=== PATIENT | male | born 1960 | race Caucasian/White ===

== ENCOUNTER → 2021-05-04 07:38 | Outpatient (CLI) | payer BC, SELFPAY ==
--- NOTE | 2021-05-22 10:15 | WPDSLEEPSTUD ---
Sleep Study Date of Study: 05/04/21 <Kavya Khan, DO - Last Filed: 05/22/21 10:57> Ordering Provider: Jose Castrejon MD <Kavya Khan DO - Last Filed: 05/22/21 10:57> Interpreting Physician: Kavya Khan DO <Kavya Khan, DO - Last Filed: 05/22/21 10:57> Sleep Study Type: Polysomnogram <Kavya Khan DO - Last Filed: 05/22/21 10:57> Height: 1.8 m <Kavya Khan DO - Last Filed: 05/22/21 10:57> Weight: 92.079 kg <Kavya Khan DO - Last Filed: 05/22/21 10:57> Body Mass Index: 28.3 <Kavya Khan DO - Last Filed: 05/22/21 10:57> Neck Circumference (inches): 17 <Kavya Khan DO - Last Filed: 05/22/21 10:57> [place]: 9 <Kavya Khan DO - Last Filed: 05/22/21 10:57> Reason for Sleep Study The patient has excessive daytime sleepiness, sleepiness interfering with work and difficulty concentrating. <Kavya Khan DO - Last Filed: 05/22/21 10:57> Sleep History The patient is a 62-year-old male with type 2 diabetes that had a sleep study ordered due to excessive daytime sleepiness, difficulty concentrating and sleepiness interfering with work. The symptoms do not occur every day but have been going on for longer than 2 years. The patient denies waking up from sleep short of breath. He rarely awakens with heartburn, belching or cough. he often snores loud enough to where. He denies having trouble sleeping when he has a cold. He denies suddenly waking up gasping for breath throughout the night. He denies any heart palpitations throughout the night. He often falls asleep during. He denies falling asleep while driving. He does have trouble at work because of sleepiness. He denies sleep paralysis and cataplexy. We rarely experiences vivid dreamlike scenes upon awakening or asleep. He denies having nightmares. He often feels sad, depressed and anxious. He denies noticing parts his body jerk. He denies kicking throughout the night and experiencing crawling /aching feelings in his legs. He denies leg pain throughout night. He denies grinding his teeth and waking up with morning jaw pain. He denies being bothered by pain during the day or being awakened by pain throughout the night. He rarely wakes up feeling stiff in the morning with sore and achy muscles. The patient goes to 10:00 p.m. on weekdays and weekends he usually takes him 20 minutes to asleep usually gets 5-6 hours of sleep per night wakes up once throughout the night to your urinate. he falls back asleep within a couple minutes. Usually wakes up at 4:00 a.m. on both weekdays and weekends. He does not stay in bed after waking morning. He does not live with anyone. He does have a rotating work schedule. He denies consuming any caffeinated beverages within 2 hours before going to bed. He does not engage in physical exercise before bedtime. He will read and watch television prior to bedtime. He will take naps during the afternoon which are refreshing. He denies tobacco, alcohol and recreational drug use. He does consume 1 caffeinated beverage per day. <Kavya Khan DO - Last Filed: 05/22/21 10:57> [facility] Past Medical History Medical History: Medical History Apnea BMI 29.0-29.9,adult Screening for prostate cancer <Kavya Khan DO - Last Filed: 05/22/21 10:57> Family History Family History: Family History Mother Hypertension Family history of diabetes mellitus in first degree relative Father Family history of liver disease Other Family history of malignant neoplasm <Kavya Khan DO - Last Filed: 05/22/21 10:57> Social History Social History: Social History Smoking status: Never smoker Alcohol intake: nev
[2021-05-22 10:17] VITALS: BMI 28.3
== END ==
PROVIDERS: PCP Family Medicine; Visit Provider Family Medicine
DX: G47.33 Obstructive sleep apnea (adult) (pediatric) (principal)
CPT/HCPCS: 95810

== ENCOUNTER → 2021-09-29 08:09 | Outpatient (CLI) | payer BC, SELFPAY ==
--- NOTE | ~2021-09-29 | US_ITS ---
US abdomen complete EXAMINATION: US Abdomen Complete INDICATION: Abnormal labs. PROCEDURE: Realtime High Resolution abdomen ultrasound. COMPARISON: No prior studies for comparison FINDINGS: There is a 4 mm gallbladder polyp. No gallstones, gallbladder wall thickening or pericholec ystic fluid. Common bile duct measures 3 mm. Liver echotexture is increased, consistent with fatty infiltration.. Pancreas within normal limits. Pancreatic tail is obscured by bowel gas. Spleen is unremarkeable. Renal echotexture is within norm al limits bilaterally without hydronephrosis, contour deforming mass or renal stone. Right kidney claudio sures 11 cm. Left kidney measures 11.7 cm. Visualized aspects of the aorta and IVC are within normal limits. Portal vein is patent. No sonograph ic Westbrook's sign indicated by the technologist. IMPRESSION: 1: Gallbladder polyp measuring 4 mm. 2: Hepatic steatosis. Reviewed, dictated and finalized at location A. [facility]
== END ==
PROVIDERS: PCP Family Medicine; Visit Provider Nurse Practitioner Family
DX: R74.8 Abnormal levels of other serum enzymes (principal); K82.4 Cholesterolosis of gallbladder; K76.0 Fatty (change of) liver, not elsewhere classified
CPT/HCPCS: 76700

== ENCOUNTER 2021-10-07 19:19 | Emergency (ER) | payer OTHER, BC, SELFPAY ==
--- NOTE | ~2021-10-07 | XR_ITS ---
EXAMINATION: XR ankle LT min 3V DATE: 10/07/2021 19:31 INDICATION: Left ankle pain and swelling TECHNIQUE: Anteroposterior, lateral, mortise, and additional oblique view of the ankle were obtained. COMPARISON: 08/21/2004 FINDINGS: There is lateral soft tissue swelling of ankle. Bone alignment is normal. There is no fract ure. Calcified atherosclerosis is noted. IMPRESSION: 1. Lateral soft tissue swelling of ankle without acute osseous abnormality. Reviewed, dictated and finalized at location F. S [employer]
--- NOTE | 2021-10-07 19:30 | ED.LOWEXIN ---
HPI - Extremity Injury (Lower) General Chief Complaint: Extremity Injury, Lower Stated Complaint: injured l ankle Time Seen by Provider: 10/07/21 19:34 Source: patient, RN notes reviewed and old records reviewed Mode of arrival: ambulatory Limitations: no limitations History of Present Illness HPI Narrative: 61-year-old [facility] pain. Reports fell on bleachers and twisted and fell on his ankle earlier today. Has been able to walk but hurts with full weight on foot. Increased pain with certain positions. Left ankle is swollen, no redness, no bruising. Has taken ibuprofen 200 mg x 1. Has not applied ice. Has not elevated leg. MD complaint: ankle injury (Left) Related Data Allergies Allergy/AdvReac Type Severity Reaction Status Date / Time Iixmvyl-VGJ-WqP Reductase Allergy Unknown Unknown Verified 02/19/21 14:37 Inhibitor [Jqcryju-Iax-Qbi Reductase Inhibitor] Review of Systems Review of Systems: CONSTITUTIONAL: Denies fever, chills, or sweats. EYES: Denies visual changes, redness, or discharge. ENT: Denies rhinorrhea, congestion, sore throat, or otalgia. CARDIOVASCULAR: Denies chest pain, palpitations, or edema. RESPIRATORY: Denies cough or dyspnea. GASTROINTESTINAL: Denies abdominal pain, nausea, vomiting, or diarrhea. GENITOURINARY: Denies dysuria or hematuria. SKIN: Denies rash or itching. MUSCULOSKELETAL: Denies back pain. Reports left ankle pain and swelling. NEUROLOGIC: Denies headache, numbness, or weakness. PSYCHIATRIC: Denies anxiety or depression. All other systems reviewed are negative, except as documented in HPI. [facility] Past Medical History Medical History Apnea BMI 29.0-29.9,adult Screening for prostate cancer Family History Family History Mother Hypertension Family history of diabetes mellitus in first degree relative Father Family history of liver disease Other Family history of malignant neoplasm Social History Social History Smoking status: Never smoker Alcohol intake: never Comments At the time of my signature, I reviewed and agree with the nursing past medical, surgical, social, and family history. There is no relevant family history pertinent to the patient complaint. Exam Narrative: GENERAL: This is a well-nourished, well-developed male, in no apparent distress. Pleasant and cooperative. HEAD: normocephalic, atraumatic. EYES: Sclera clear/white. Vision is grossly intact. EARS: External ears normal, auditory canals clear and without drainage. Hearing grossly intact. NOSE: External nose normal with no obvious nasal discharge, nares without redness, no rhinorrhea. THROAT: Mucous membranes moist, posterior pharynx clear. NECK: Neck supple, non-tender without lymphadenopathy, masses or thyromegaly. CARDIOVASCULAR: Regular rate and rhythm without murmurs, gallops, or rubs. RESPIRATORY: Clear to auscultation anterior and posterior.. Breath sounds equal bilaterally. No wheezes, rales, or rhonchi. GASTROINTESTINAL: Abdomen soft, non-tender, nondistended. Bowel sounds are active. No hepato-splenomegaly, or palpable masses. No guarding. SKIN: warm, Dry, intact with no suspicious lesions or rash, good texture and turgor. NEURO: awake, alert, and oriented to person, place and time. There were no obvious focal neurologic abnormalities. EXTREMITIES: No bilateral upper extremity or right joint tenderness, effusion, or edema noted. No calf tenderness. EXTREMITIES: Right foot and ankle has normal strength and sensation. No right ankle edema or ecchymosis. Left ankle limited range of motion due to pain. Left lateral malleolus swelling. 5/5 strength with bilateral ankle flexion and extension. Normal sensation with sensitivity to light touch and pain. Left lateral malleol
[2021-10-07 19:32] VITALS: BP 118/74; PULSE 112; RESP 16; TEMP 36.2; O2SAT 98
== END 2021-10-07 19:50 | disposition home or self-care (01) ==
PROVIDERS: Emergency Provider Nurse Practitioner Family; PCP Family Medicine
DX: S90.02XA Contusion of left ankle, initial encounter (principal); W19.XXXA Unspecified fall, initial encounter
CPT/HCPCS: 73610; 99213; G0463

== ENCOUNTER → 2022-01-15 11:00 | Outpatient (CLI) | payer BC, SELFPAY ==
--- NOTE | ~2022-01-15 | XR_ITS ---
XR ankle LT min 3V DATE: 01/15/2022 11:19 INDICATION: Left ankle injury, pain TECHNIQUE: 4 views COMPARISON: October 07, 2021 left ankle FINDINGS: Posterior tibial artery calcification. No fracture or dislocation of the ankle or disruption of the ankle mortise is detected. No periosteal reaction or bone destruction. IMPRESSION: No fracture or dislocation Reviewed, dictated and finalized at location A. IMPRESSION: No fracture or dislocation
== END ==
PROVIDERS: PCP Family Medicine; Visit Provider Physician Assistant Medical
DX: S99.912A Unspecified injury of left ankle, initial encounter (principal)
CPT/HCPCS: 73610

== ENCOUNTER → 2022-02-22 17:09 | Outpatient (CLI) | payer BC, SELFPAY ==
--- NOTE | ~2022-02-22 | MR_ITS ---
EXAMINATION: MR ankle LT wo con DATE: 02/22/2022 17:44 INDICATION: Left ankle pain TECHNIQUE: Magnetic resonance imaging (MRI) of the left ankle was performed without intravenous contr ast. Sequences included sagittal, coronal, and axial proton-density weighted fast spin echo without a nd with fat saturation. COMPARISON: None. FINDINGS: Medial ankle ligaments: There is thickening and loss of the normally clearly delineated striated pattern of the deep deltoid ligament without surrounding edema consistent with scarring related to chronic sprain. The superficia l deltoid ligament and spring ligament complex are normal. Lateral ankle ligaments: The anterior and posterior inferior tibiofibular ligaments are normal. Thickening and mild increased signal of the anterior talofibular and calcaneofibular ligaments consistent with scarring related to chronic sprains. The posterior talofibular ligament is normal. Tendons: Achilles tendon is normal. Small amount of fluid along the peroneal tendon sheath consistent with mil d tenosynovitis. Mild tendinopathy and longitudinal split tear of the peroneus longus tendon centered at the level of the distal tip at the lateral malleolus. Peroneus brevis tendon is normal. The tibia lis anterior and extensor hallucis longus and extensor digitorum longus tendons are normal. The tibia lis posterior, flexor digitorum longus and flexor hallucis longus tendons are normal. Plantar fascia: Plantar aponeurosis is normal. Bones/other: Small low signal intensity bone island at the talar dome. Marrow signal is otherwise normal with no r eactive edema, fracture or pathologic marrow replacing process. Nonspecific edema at Kager's fat pad. Fluid: Small tibiotalar and subtalar joint effusions. IMPRESSION: 1. Scarring consistent with chronic sprains of the deltoid ligament at the medial ankle and at the an terior talofibular and calcaneofibular ligaments at the lateral ankle. 2. Mild peroneal tenosynovitis with mild tendinopathy and longitudinal split tearing of the peroneus longus tendon. 3. Small tibiotalar and subtalar joint effusions and nonspecific mild edema at Kager's fat pad. Reviewed, dictated and finalized at location A. IMPRESSION: 1. Scarring consistent with chronic sprains of the deltoid ligament at the medi al ankle and at the anterior talofibular and calcaneofibular ligaments at the l ateral ankle. 2. Mild peroneal tenosynovitis with mild tendinopathy and longitudinal split te aring of the peroneus longus tendon. 3. Small tibiotalar and subtalar joint effusions and nonspecific mild edema at Kager's fat pad.
== END ==
PROVIDERS: PCP Family Medicine; Visit Provider Nurse Practitioner Family
DX: S99.912A Unspecified injury of left ankle, initial encounter (principal); M25.572 Pain in left ankle and joints of left foot; M65.872 Other synovitis and tenosynovitis, left ankle and foot; S96.812A Strain of other specified muscles and tendons at ankle and foot level, left foot, initial encounter; M25.472 Effusion, left ankle; M79.89 Other specified soft tissue disorders
CPT/HCPCS: 73721

== ENCOUNTER 2023-12-15 08:39 | Outpatient (CLI) | payer BC, SELFPAY ==
--- NOTE | ~2023-12-15 | XR_ITS ---
EXAMINATION: XR abdomen/kub 1V DATE: 12/15/2023 09:00 INDICATION: Renal stones TECHNIQUE: A supine view of the abdomen on 2 radiographs was obtained. COMPARISON: 04/16/2019 FINDINGS: 5 mm stone projecting over the lower pole of the left kidney. No other definitive urolithiasis apprec iated. No dilated loops of gas-filled bowel to suggest obstruction. Moderate lower lumbar spondylosis . IMPRESSION: 1. 5 mm stone at the lower pole the left kidney. Reviewed, dictated and finalized at location A.
== END 2023-12-15 08:40 ==
PROVIDERS: PCP Nurse Practitioner Family; Visit Provider Nurse Practitioner Family
DX: N20.0 Calculus of kidney (principal); Z87.442 Personal history of urinary calculi
CPT/HCPCS: 74018

== ENCOUNTER 2023-12-15 14:12 | Outpatient (CLI) | payer BC, SELFPAY ==
--- NOTE | ~2023-12-15 | CT_ITS ---
EXAMINATION: CT abdomen pelvis w con DATE: 12/15/2023 14:38 INDICATION: Right lower quadrant abdominal pain TECHNIQUE: Computed tomography (CT) of the abdomen and pelvis was performed with 100 mL Omnipaque-350 intravenous contrast. Automated exposure control and iterative reconstruction technique were employe d. The dose-length product was 979.45 mGy-cm. COMPARISON: 04/11/2019 FINDINGS: Lung bases are clear. Heart size is normal. Atherosclerotic coronary artery calcific location. No per icardial or pleural effusion. Small sliding-type hiatal hernia. Mild diffuse hepatic steatosis. Gallb ladder, spleen, pancreas and bilateral adrenal glands are normal. For millimeter nonobstructing stone at a lower pole calyx of the left kidney. A millimeter nonenhancing left renal cyst. 4 x [address] one at the distal right ureter approximately 4-5 cm above level of the ureterovesicular junction with mild right hydronephrosis. There are a few tiny densities and Marlene fluid collection at a small cortical defect at the posterior aspect of the lower pole of the right kidney which suggests sequela prior partial nephrectomy. Correlate with surgical history. No evident enhancing soft tissue density at the site of the suspected surgical defect. Multiple posterior bladder diverticula which could be r elated to chronic outlet obstruction from the enlarged prostate which measures 4.1 x 4.1 cm. Bowels i ncluding the appendix are normal. Moderate-sized bilateral fat-containing inguinal hernias. No free i ntraperitoneal gas or fluid. No pathologically enlarged abdominal or pelvic lymphadenopathy. Severe l umbosacral and moderate lumbar spondylosis. Mild spondylosis in the lower thoracic spine. IMPRESSION: 1. Bilateral nephrolithiasis with at least partially obstructing 3 to 4 mm stone in the distal right ureter with mild right hydronephrosis. 2. Change of likely partial nephrectomy at the lower pole of the left kidney. Correlate with surgical history. 3. Small sliding-type hiatal hernia. 4. Several posterior bladder diverticula which suggests sequela of chronic outlet obstruction from th e enlarged prostate. 5. Small to moderate-sized bilateral fat-containing inguinal hernias. Reviewed, dictated and finalized at location A. IMPRESSION: 1. Bilateral nephrolithiasis with at least partially obstructing 3 to 4 mm ston e in the distal right ureter with mild right hydronephrosis. 2. Change of likely partial nephrectomy at the lower pole of the left kidney. C orrelate with surgical history. 3. Small sliding-type hiatal hernia. 4. Several posterior bladder diverticula which suggests sequela of chronic outl et obstruction from the enlarged prostate. 5. Small to moderate-sized bilateral fat-containing inguinal hernias.
[2023-12-15 14:31] LABS: Estimated Glomerular Filt Rate > 60
== END 2023-12-15 14:13 ==
PROVIDERS: PCP Physician Assistant Medical; Visit Provider Physician Assistant Medical
DX: N20.0 Calculus of kidney (principal); R31.9 Hematuria, unspecified; I10 Essential (primary) hypertension; E11.9 Type 2 diabetes mellitus without complications; Z87.442 Personal history of urinary calculi
CPT/HCPCS: 74177; Q9967

== ENCOUNTER 2024-01-13 12:18 | Outpatient (CLI) | payer BC, SELFPAY ==
--- NOTE | 2024-01-13 12:27 | ECG_ITS ---
[facility] [address] Test Date: 2024-01-13 Pat Name: Edward Be Department: Room: Gender: Oss Architect: : [id number] Requested By: Kalia Clark Order Number: [id number] Markus MD: Peter Diehl M.D. Measurements Intervals [place] Rate: 66 P: 1 GA: 143 QRS: 19 QRSD: 94 T: 31 QT: 400 QTc: 419 Interpretive Statements SINUS RHYTHM No previous ECG available for comparison Electronically Signed On 01-13-2024 14:28:17 CDT by Peter Diehl M.D.
== END 2024-01-13 12:19 | disposition home or self-care (01) ==
LOC: ANHSURGERY 12:21
PROVIDERS: PCP Family Medicine; Visit Provider Surgery
DX: Z01.818 Encounter for other preprocedural examination (principal); E78.5 Hyperlipidemia, unspecified; I10 Essential (primary) hypertension; K40.20 Bilateral inguinal hernia, without obstruction or gangrene, not specified as recurrent
CPT/HCPCS: 36415; 86850; 86900; 86901; 93005

== ENCOUNTER 2024-01-22 02:41 | Day surgery (SDC) | payer BC, SELFPAY ==
[2024-01-12 12:47] VITALS: BMI 29.5
--- NOTE | 2024-01-12 12:48 | PC.NURSE ---
Report to the Outpatient Waiting Room, entrance under the green pavilion located off [facility], at time _1000_ on date _[id number]_. Planned Procedure Time: _1200_. Time changes happen often and if your time is changed the preop area will call you the afternoon before. - You and your visitor will be asked to self-screen and do not enter if you have any COVID symptoms. - A mask is optional within the hospital at this time. Patients may have clear liquids (water, carbonated beverages, clear teas, apple juice) until 3 hours prior to surgery with a maximum of 20 ounces. - No food from midnight until time of surgery Take the following medications with a SIP of water the morning of surgery: ___Metoprolol and Sertraline. DO NOT STOP ANY OF YOUR OTHER PRESCRIPTION MEDICATIONS PRIOR TO SURGERY ?EXCEPT THE FOLLOWING Medications to discontinue per physician ___None Date to take last dose Please no make-up, nail honduran, hairspray, perfume, deodorant, or body powder the day of surgery. No jewelry (including any body piercings) or valuables the day of surgery, leave them at home. Please take a shower or bath the night before, or the morning of, surgery with an antibacterial soap. Wear comfortable, loose fitting clothing. - Jewelry must be removed prior to entering the operating room. Rings and piercings that are not removed may be cut off. - The hospital will not accept responsibility for valuables. - Please leave all valuables, including medications, at home the day of surgery. If you are going home after surgery, a licensed milk pickup truck driver must drive you home. - NO public transportation without another adult if you receive anesthesia. - We recommend that an adult stay with you for 24 hours following discharge. - We also recommend that you do not drive, make important decision, drink alcoholic beverages, or take any drugs that were not prescribed by your health care provider for at least 24 hours after your discharge time. Follow any additional instructions given to you from your surgeon. If you or anyone in your household have experienced Covid symptoms in the past week, please notify your surgeon or the nurse liaison at the phone number below for possible testing. Telephone instructions given to _Edward__and asked if any additional questions and then verbalized understanding. Patient advised to call surgeon office or pre surgery nurse liaison [phone] if any additional questions.
[2024-01-22] VITALS (11 sets, daily range): BP systolic 123–149; BP diastolic 64–83; PULSE 66–84; RESP 12–16; TEMP 36.1–36.6; O2SAT 93–100
[2024-01-22 10:28] LABS: Glucose Point of Care 117 mg/dl (65-105)
[2024-01-22] MEDS: ACETAMINOPHEN 500 MG TABLET 1000 MG PO (10:30)
[2024-01-22] MEDS: KETOROLAC 15 MG/ML VIAL (*BKC) IV PUSH (10:30)
[2024-01-22] MEDS: LACTATED RINGERS 1,000 ML 30 ML IV CONT ×4 (10:30→16:31)
--- NOTE | 2024-01-22 11:31 | WPDANESEPPF ---
Anes - Initial Pre Proc Eval Procedure: Operation Date: 01/22/24 12:00 Proposed Procedures p Robotic Recurrent Right Inguinal Hernia, Left Inguinal Hernia Repair with Mesh - Liza Funk MD Date/Time: 01/22/24 11:31 Surgeon: Liza Funk MD Pre Op Diagnosis: Recurrent Right Ing Henia, Left Ing Hernia Patient Data Age: 63 Gender: M Height: 1.8 m Weight: 91.9 kg Last Vital Signs Temp 97.8 F 01/22/24 11:00 Pulse 70 01/22/24 11:00 Resp 16 01/22/24 11:00 BP 123/68 01/22/24 11:00 Pulse Ox 98 01/22/24 11:00 O2 Del Method Room Air 01/22/24 11:00 Allergies Allergy/AdvReac Type Severity Reaction Status Date / Time No Known Allergies Allergy Verified 01/22/24 11:16 Home Medications Medication Instructions Recorded Confirmed Type metformin 500 mg tablet,extended See Rx Instructions .Route 08/22/23 01/12/24 Rx release 24 hr .COMPLEX #360 tabs sertraline 50 mg tablet 50 mg PO DAILY #90 tabs 10/31/23 01/12/24 Rx ezetimibe 10 mg tablet 10 mg PO DAILY #90 tabs 11/19/23 01/12/24 Rx tamsulosin 0.4 mg capsule See Rx Instructions .Route 12/16/23 01/12/24 Rx .COMPLEX #90 caps lisinopril 20 mg tablet See Rx Instructions .Route 01/03/24 01/12/24 Rx .COMPLEX #90 tabs metoprolol tartrate 25 mg tablet 25 mg PO BID #180 tabs 01/03/24 01/12/24 Rx omeprazole 40 mg capsule,delayed See Rx Instructions .Route 01/03/24 01/12/24 Rx release .COMPLEX #90 caps Laboratory Tests 01/22/24 10:25 POC Capillary Glucose 117 H mg/dl (65-105) Patient hx anesthesia problems: none Family hx anesthesia problems: none Results Review: All pre-operative results and documents have been reviewed as part of the pre-operative evaluation. [facility] Past Medical History Medical History Apnea BMI 28.0-28.9,adult Screening for prostate cancer Surgical History Surgical History History of kidney surgery History of shoulder surgery Hx of eye surgery Hx of hernia repair Family History Family History Mother Hypertension Family history of diabetes mellitus in first degree relative Diabetes mellitus Father Family history of liver disease Sibling No problems noted. Other Family history of malignant neoplasm Social History Social History Smoking status: Never smoker Second hand tobacco smoke exposure: Yes Alcohol intake: never Substance use: never Substance use type: does not use Lack of Transportation: No Lack of Food: Never True Current Housing: I Have Housing Concerned About Future Housing: No Difficulty Paying Gas/Electric Bills: No Difficulty Paying for Meds: No Currently Unemployed: No Education: High School Diploma/GED Difficulty w/ Childcare or Family Care: No Living arrangements: with family Occupation/Education: occupation Additional occupation/education comments: [employer] Gender identity (if verbalized by the patient): Male Spiritual care concerns: No Anes - Eval Final PreProcedure Day of Procedure 01/22/24 11:31 Patient weight: obese Heart: regular rate and rhythm Lungs: clear to auscultation Airway: Mallampati scale class III Neurological: alert and oriented Last oral intake: >/= 8 hours ASA classification: III Emergent: no Anesthetic plan: proceed Anesthesia type and monitoring: general ETT (have glide scope in the room) and standard monitoring Results Review: All pre-operative results and documents have been reviewed as part of the pre-operative evaluation. Informed Consent: The patient's anesthetic plan and its attendant risks and benefits were discussed with the patient/family/POA. Questions were solicited and answers provided to the satisfaction of the patient/
--- NOTE | 2024-01-22 12:02 | WPDHPUPDATE1 ---
History and Physical Update Update Date/Time: 01/22/24 12:02 History and Physical has been reviewed, including an updated exam of the patient. There are NO changes in the patient's condition. Risks, benefits, and alternatives have been discussed and questions answered. Patient agrees to proceed with procedure.
[2024-01-22] MEDS: ceFAZolin 2 GM/D5W 50 ML 2 GM/50 ML BAG IVPB (12:06)
[2024-01-22] MEDS: BUPIVACAINE/EPINEPHRINE 0.5% 50 ML VIAL 30 ML INFILTRATE (12:46)
--- NOTE | 2024-01-22 13:54 | W.PM.PROC2 ---
Procedure Note - Detailed Date of Procedure 01/22/24 Pre-op Diagnosis Recurrent Right Inguinal Hernia, Left Inguinal Hernia Post-op Diagnosis Other (right pantaloon inguinal hernia, left indirect hernia) Procedure Performed Robotic assisted repair of recurrent right inguinal hernia, left inguinal hernia Surgeon Liza Funk MD Anesthesia General and Local Indications 63-year-old male presenting to the office with bilateral inguinal hernia. The patient had previous laparoscopic right inguinal hernia repair many years ago. Findings Recurrent right inguinal hernia indirect defect, previous mesh pulled away and superior direction, left indirect inguinal hernia Description of Procedure Patient was brought into the operating room and placed in the supine position. After adequate induction of general anesthesia, the patient was prepped and draped in normal sterile fashion. A time-out was then done to verify the patient's identity, as well as the procedure being performed. I began by making a 8 mm incision in the supraumbilical region, a Veress needle was then placed into the peritoneal cavity. CO2 gas was then insufflated and after adequate pneumoperitoneum was achieved, the Veress needle was removed. I then placed an 8 mm trocar through this incision. I then placed the endoscope through this trocar site and under direct visualization placed 2 further 8 mm ports in the right and left mid abdomen. The [employer] robot was then docked to the 3 trocar sites. I then scrubbed out and went to the robotic console. Upon examining the pelvis, it was noted that the patient had a moderate sized right inguinal hernia. The left side was examined and a small hernia defect was noted. I began by making a preperitoneal flap approximately 6 cm superior to the right sided defect. This flap was carried medially past the umbilical ligaments and laterally to the transversalis. Of note, this dissection was quite difficult as the patient had previous laparoscopic repair. The previous mesh was also encountered. I was able to get a plane between the mesh and the anterior abdominal wall as the mesh was very adherent to the underlying peritoneum. I then began dissection of my medial compartment taking this down to the pubic tubercle. No direct defect was noted. I then began the lateral dissection taking this down to the transversalis fascia. Once these compartments were achieved, I began dissection around the cord structures. A moderate sized indirect hernia was noted at this point. The previously placed mesh had pulled away superiorly allowing an inferior recurrence. Using careful dissection, was able to reduce indirect hernia sac off the cord structures. Once this was adequately done, I went ahead and placed a large piece of 3D Max mesh into the abdominal cavity. The mesh was carefully positioned, centering the center of the mesh over the indirect defect. Once this was done, was very satisfied with our repair. Using 3-0 Vicryl sutures, I tacked the mesh medially to Leonel's ligament. Two lateral sutures were placed from the mesh to the transversalis fascia. I then began on the left side by making a preperitoneal flap approximately 6 cm superior to the left sided defect. This flap was carried medially past the umbilical ligaments and laterally to the transversalis. It then began dissection of my medial compartment taking this down to the pubic tubercle. I then began the lateral dissection taking this down to the transversalis fascia. Once these compartments were achieved, I began dissection around the cord structures. A small indirect hernia was noted at this point. Using careful dissection, was able to reduce indirect hernia sac off the cord structures. Once this was adequately done, I went ahead and placed a large piece of 3D Max mesh into the abdominal cavity. The mesh was carefully positioned, centering the center of the mesh over the indirect defect. Once this was d
[2024-01-22 14:14] LABS: Glucose Point of Care 149 mg/dl (65-105)
--- NOTE | 2024-01-22 14:23 | SUR.PHASEI ---
1422: Simple mask removed.
[2024-01-22] MEDS: fentaNYL CITRATE INJ (*CRX) 100 MCG/2 ML VIAL 25 MCG IV PUSH ×4 (14:34→15:05)
[2024-01-22] MEDS: oxyCODONE HCL (*CRX) 5 MG TAB IR PO (15:19)
== END 2024-01-22 17:03 | disposition home or self-care (01) ==
PROVIDERS: PCP Family Medicine; Visit Provider Surgery
PROC: 8E0Y4CZ Robotic Assisted Procedure of Lower Extremity, Percutaneous Endoscopic Approach (ICD-10-PCS; CPT 49650; principal; 2024-01-22 12:00)
DX: K40.91 Unilateral inguinal hernia, without obstruction or gangrene, recurrent (principal); K40.90 Unilateral inguinal hernia, without obstruction or gangrene, not specified as recurrent; Z79.84 Long term (current) use of oral hypoglycemic drugs; E66.9 Obesity, unspecified; Z68.28 Body mass index [BMI] 28.0-28.9, adult
CPT/HCPCS: 49651; 49650; S2900; 82948; A9270; C1781; J0330; J0690; J1100; J1885; J2250; J2405; J2704; J3010; J7030; J7120

== ENCOUNTER 2024-02-17 10:24 | Outpatient (CLI) | payer BC, SELFPAY ==
[2024-02-17 10:54] LABS: Anion Gap 9 mmol/L (4-12); Blood Urea Nitrogen 21 mg/dL (9-20); Calcium 8.7 mg/dL (8.4-10.2); Carbon Dioxide 26 mmol/L (22-30); Chloride 103 mmol/L (98-107); Estimated Glomerular Filt Rate > 60; Glucose 149 mg/dL (65-110); Potassium 4.6 mmol/L (3.4-5.0); Sodium 138 mmol/L (137-145)
== END 2024-02-17 10:25 | disposition home or self-care (01) ==
LOC: ANHSURGERY 10:25
PROVIDERS: Anesthesiology; PCP Family Medicine; Visit Provider Urology
DX: Z01.818 Encounter for other preprocedural examination (principal); E11.9 Type 2 diabetes mellitus without complications
CPT/HCPCS: 36415; 80048

== ENCOUNTER 2024-02-19 01:17 | Day surgery (SDC) | payer BC, SELFPAY ==
[2024-02-16 15:29] VITALS: BMI 29.2
--- NOTE | 2024-02-16 15:40 | SUR.PREOP ---
Addendum entered by Brigida Nolen RN 02/17/24 07:05: Pt notified to also take metoprolol morning of surgery with small sip of water. Original Note: Report to the Outpatient Waiting Room, entrance under the green pavilion located off [facility], at time 0800 on date 02/19/24. Planned Procedure Time: 1000. Time changes happen often and if your time is changed the preop area will call you the afternoon before. - You and your visitor will be asked to self-screen and do not enter if you have any COVID symptoms. - A mask is optional within the hospital at this time. Patients may have clear liquids (water, carbonated beverages, clear teas, apple juice) until 3 hours prior to surgery with a maximum of 20 ounces. - No food from midnight until time of surgery Take the following medications with a SIP of water the morning of surgery: SERTRALINE IF NEEDED DO NOT STOP ANY OF YOUR OTHER PRESCRIPTION MEDICATIONS PRIOR TO SURGERY ?EXCEPT THE FOLLOWING Medications to discontinue per physician STOP ALL SUPPLIMENTS AND VITAMINS 3 DAYS PRIOR TO PROCEDURE. Date to take last dose 02/16/24 Please no make-up, nail french, hairspray, perfume, deodorant, or body powder the day of surgery. No jewelry (including any body piercings) or valuables the day of surgery, leave them at home. Please take a shower or bath the night before, or the morning of, surgery with an antibacterial soap. Wear comfortable, loose fitting clothing. Children are encouraged to wear pajamas. - Jewelry must be removed prior to entering the operating room. Rings and piercings that are not removed may be cut off. - The hospital will not accept responsibility for valuables. - Please leave all valuables, including medications, at home the day of surgery. If you are going home after surgery, a licensed tanker driver must drive you home. - NO public transportation without another adult if you receive anesthesia. - We recommend that an adult stay with you for 24 hours following discharge. - We also recommend that you do not drive, make important decision, drink alcoholic beverages, or take any drugs that were not prescribed by your health care provider for at least 24 hours after your discharge time. Follow any additional instructions given to you from your surgeon. If you or anyone in your household have experienced Covid symptoms in the past week, please notify your surgeon or the nurse liaison at the phone number below for possible testing. Telephone instructions given to ROX MENDIOLA and asked if any additional questions and then verbalized understanding. Patient advised to call surgeon office or pre surgery nurse liaison [phone] if any additional questions.
--- NOTE | 2024-02-18 15:25 | WPDANESEPPF ---
Anes - Initial Pre Proc Eval Procedure: Operation Date: 02/19/24 10:30 Proposed Procedures p Cystoscopy, Possible Urethral Dilation, Bilateral Ureteroscopy, Possible Bilateral Stone Extraction - Heron Ferreira MD Date/Time: 02/18/24 15:25 Surgeon: Heron Ferreira MD Pre Op Diagnosis: right ureteral stone, hydronephrosis, BPH Patient Data Age: 63 Gender: M Height: 1.8 m Weight: 95.25 kg Allergies Allergy/AdvReac Type Severity Reaction Status Date / Time No Known Allergies Allergy Verified 02/19/24 09:26 Home Medications Medication Instructions Recorded Confirmed Type metformin 500 mg tablet,extended See Rx Instructions .Route 08/22/23 02/16/24 Rx release 24 hr .COMPLEX #360 tabs tamsulosin 0.4 mg capsule See Rx Instructions .Route 12/16/23 02/16/24 Rx .COMPLEX #90 caps lisinopril 20 mg tablet See Rx Instructions .Route 01/03/24 02/16/24 Rx .COMPLEX #90 tabs metoprolol tartrate 25 mg tablet 25 mg PO BID #180 tabs 01/03/24 02/16/24 Rx omeprazole 40 mg capsule,delayed See Rx Instructions .Route 01/03/24 02/16/24 Rx release .COMPLEX #90 caps sertraline 50 mg tablet 50 mg PO DAILY #90 tabs 01/28/24 02/16/24 Rx ezetimibe 10 mg tablet 10 mg PO DAILY #90 tabs 02/13/24 02/16/24 Rx Patient hx anesthesia problems: none Family hx anesthesia problems: none Results Review: All pre-operative results and documents have been reviewed as part of the pre-operative evaluation. [facility] Past Medical History Medical History (Updated 02/18/24 @ 15:26 by Kalia Jansen DO) Apnea BMI 28.0-28.9,adult Elevated liver enzymes Essential (primary) hypertension Hepatic steatosis DARLING (obstructive sleep apnea) Screening for prostate cancer Type 2 diabetes mellitus without complications Surgical History Surgical History History of kidney surgery History of shoulder surgery Hx of eye surgery Hx of hernia repair S/P inguinal hernia repair 01/22/24 Robotic assisted repair of recurrent right inguinal hernia, left inguinal hernia on Family History Family History Mother Hypertension Family history of diabetes mellitus in first degree relative Diabetes mellitus Father Family history of liver disease Sibling No problems noted. Other Family history of malignant neoplasm Social History Social History Smoking status: Never smoker Second hand tobacco smoke exposure: Yes Alcohol intake: never Substance use: never Substance use type: does not use Lack of Transportation: No Lack of Food: Never True Current Housing: I Have Housing Concerned About Future Housing: No Difficulty Paying Gas/Electric Bills: No Difficulty Paying for Meds: No Currently Unemployed: No Education: High School Diploma/GED Difficulty w/ Childcare or Family Care: No Living arrangements: with family Occupation/Education: occupation Additional occupation/education comments: [id number] Gender identity (if verbalized by the patient): Male Spiritual care concerns: No Anes - Eval Final PreProcedure Day of Procedure 02/18/24 15:25 Patient weight: overweight Heart: regular rate and rhythm Lungs: clear to auscultation Airway: Mallampati scale class II Neurological: alert and oriented Last oral intake: >/= 8 hours ASA classification: III Emergent: no Anesthetic plan: proceed Anesthesia type and monitoring: general LMA and standard monitoring Results Review: All pre-operative results and documents have been reviewed as part of the pre-operative evaluation. Informed Consent: The patient's anesthetic plan and its attendant risks and benefits were discussed with the patient/family/POA. Questions were solicited and answers provided to the satisfaction of the patient/family/POA.
[2024-02-19] VITALS (7 sets, daily range): BP systolic 119–139; BP diastolic 80–85; PULSE 62–75; RESP 8–20; TEMP 36.1–36.8; O2SAT 97–100
--- NOTE | ~2024-02-19 | XR_ITS ---
XR fluoroscopy no charge Indication: Right ureteroscopy TECHNIQUE: Fluoroscopy used during Right ureteroscopy performed by [Heron Ferreira MD] on 06/2024. 7.2 seconds of fluoroscopy with 3 fluoroscopic images captured. FINDINGS: Correlate with procedure note. IMPRESSION: Fluoroscopy used during Right ureteroscopy. Reviewed, dictated and finalized at location B.
--- NOTE | 2024-02-19 06:31 | WPDHPUPDATE1 ---
History and Physical Update Update Date/Time: 02/19/24 06:31 History and Physical has been reviewed, including an updated exam of the patient. There are NO changes in the patient's condition. Risks, benefits, and alternatives have been discussed and questions answered. Patient agrees to proceed with procedure.
[2024-02-19] MEDS: LACTATED RINGERS 1,000 ML 30 ML IV CONT (09:00)
[2024-02-19 09:10] LABS: Glucose Point of Care 156 mg/dl (65-105)
[2024-02-19] MEDS: ceFAZolin 2 GM/D5W 50 ML 2 GM/50 ML BAG IVPB (10:18)
--- NOTE | 2024-02-19 10:53 | P.OP_ITS ---
Procedure Note - Detailed Date of Procedure 02/19/24 Pre-op Diagnosis Right ureteral stone, BPH Post-op Diagnosis Other (1. Spontaneously passed right ureteral stone 2. Mild BPH 3. No urethral strictures) Procedure Performed cystoscopy, urethral dilatation, right ureteroscopy Surgeon Heron Ferreira MD Anesthesia General Description of Procedure bit of an unusual procedure today. Patient was prepped and draped in routine sterile fashion after the uneventful induction of a general LMA anesthetic. Cy stoscopy was undertaken with a 19 F rigid cystoscope. I did not see obvious urethral stricture disease but I went ahead and dilated the 30 F with Sandoval sounds. He does have mild lateral lobe hyperplasia of the prostate. Prostate volume calculated from a recent CT scan was 34 g. It is unusual as he has very dense trabeculation and diverticular formation in the posterior bladder wall. Because of the stents trabeculations I was unable to identify his left ureteral orifice. I could find his right ureteral orifice where his small ureteral stone had been seen on recent CT. I dilated the distal ureter over a 0.035 in glidewire. Right distal ureteroscopy to the iliac vessels with a semi-rigid scope failed to show any stones. At this point I removed scopes wires. I will urge him to continue tamsulosin and follow-up in several weeks. Drains No Packing No Pathology None sent Complications No immediate complications Condition Stable
[2024-02-19] MEDS: fentaNYL CITRATE INJ (*CRX) 100 MCG/2 ML VIAL 25 MCG IV PUSH ×2 (11:24→11:27)
[2024-02-19 11:35] LABS: Glucose Point of Care 156 mg/dl (65-105)
== END 2024-02-19 12:20 | disposition home or self-care (01) ==
PROVIDERS: PCP Family Medicine; Visit Provider Urology
PROC: (CPT 52352; principal; 2024-02-19 10:30)
DX: N32.3 Diverticulum of bladder (principal); N40.1 Benign prostatic hyperplasia with lower urinary tract symptoms; N13.30 Unspecified hydronephrosis; R39.14 Feeling of incomplete bladder emptying; I10 Essential (primary) hypertension; G47.33 Obstructive sleep apnea (adult) (pediatric); E78.00 Pure hypercholesterolemia, unspecified; E11.9 Type 2 diabetes mellitus without complications; K21.9 Gastro-esophageal reflux disease without esophagitis; Z79.84 Long term (current) use of oral hypoglycemic drugs; Z98.890 Other specified postprocedural states; Z80.9 Family history of malignant neoplasm, unspecified
CPT/HCPCS: 52351; 82948; 99199; C1758; C1769; J0690; J2250; J2405; J2704; J3010; J7120

== ENCOUNTER 2024-04-08 00:02 | Inpatient (IN) | payer BC, SELFPAY ==
[2024-04-08] VITALS (12 sets, daily range): BP systolic 126–139; BP diastolic 60–73; PULSE 84–105; RESP 12–23; TEMP 36.9–37.7; O2SAT 96–97
--- NOTE | ~2024-04-08 | CT_ITS ---
CT of the Abdomen and Pelvis: Indication: Kidney infection Technique: 2.5 mm axial scans were obtained through the abdomen and pelvis following intravenous adm inistration of 100 cc of Omnipaque 350. Dose reduction technique was used on this scan by utilizing a utomated exposure control and iterative reconstruction technique. The dose-length product (DLP) was 7 45.27 mGy-cm. COMPARISON: 12/15/2023 Findings: Scans through the lung bases are unremarkable. There is diffuse hepatic steatosis. The spleen, pancreas, gallbladder, and adrenal glands are within normal limits. 6 mm nonobstructing left renal stone present. Stable exophytic lesion at the right low er renal pole, suggestive of postablative or postoperative change. No evidence of aortic aneurysm. N o lymphadenopathy. No bowel obstruction or bowel wall thickening. There is no evidence to suggest acute appendicitis. Images through the pelvis were performed. There are multiple small urinary bladder diverticula. Possi ble mild urinary bladder wall thickening. Small amount of air present in the urinary bladder. Prostat e gland enlarged. No ascites. Impression: Possible cystitis. Correlate with urinalysis. Multiple small urinary bladder diverticula. Stable 6 mm nonobstructing left renal stone. Stable exophytic lesion at the right lower renal pole, suggestive of postoperative and/or postablativ e change. Correlate with bilirubin procedural history. Diffuse hepatic steatosis. Reviewed, dictated and finalized at [facility]. Impression: Possible cystitis. Correlate with urinalysis. Multiple small urinary bladder diverticula. Stable 6 mm nonobstructing left renal stone. Stable exophytic lesion at the right lower renal pole, suggestive of postoperat noemi and/or postablative change. Correlate with bilirubin procedural history. Diffuse hepatic steatosis.
[2024-04-08 00:33] LABS: Basophils Percent Auto 0.3 % (0.2-1.2); Eosinophils Percent Auto 0.1 % (0-4.4); Hematocrit 38.1 % (42.0-52.0); Hemoglobin 13.3 g/dL (14.0-18.0); Immature Granulocyte Absolute 0.08 K/mm3 (0.00-0.031); Immature Granulocyte Percent A 0.5 % (0-0.5); Lymphocytes Absolute Auto 1.23 K/mm3 (0.9-3.2); Lymphocytes Percent Auto 7.9 % (18.3-44.2); Mean Corpuscular HGB Conc 34.9 g/dl (32-36); Mean Corpuscular Hemoglobin 30.4 pg (26-34); Mean Platelet Volume 9.5 fl (7.4-10.4); Monocytes Absolute Auto 1.1 K/mm3 (0.1-0.6); Neutrophils Absolute Auto 13.1 K/mm3 (1.3-6.7); Neutrophils Percent Auto 84.2 % (45.5-73.1); Platelet Count Result 163 k/mm3 (150-375); Red Blood Count 4.38 M/mm3 (4.6-6.20); Red Cell Distribution Width 12.7 % (11.5-14.5); White Blood Count 15.5 K/mm3 (4.5-10.0)
[2024-04-08 00:43] LABS: Alanine Aminotransferase 45 U/L (6-50); Albumin Level 4.5 g/dL (3.5-5.1); Alkaline Phosphatase 61 U/L (38-126); Anion Gap 12 mmol/L (4-12); Aspartate Amino Transferase 31 U/L (17-59); Bilirubin,Total 1.9 mg/dL (0.2-1.3); Blood Urea Nitrogen 17 mg/dL (9-20); Calcium 9.2 mg/dL (8.4-10.2); Carbon Dioxide 24 mmol/L (22-30); Chloride 100 mmol/L (98-107); Estimated CRCL calculation 70 ml/min; Estimated Glomerular Filt Rate > 60; Glucose 179 mg/dL (65-110); Sodium 136 mmol/L (137-145)
[2024-04-08] MEDS: SODIUM CHLORIDE 0.9% IV 1,000 ML 999 ML IV CONT (01:50)
[2024-04-08 02:17] LABS: Add Urine Microscopic? YES; Appearance Urine Turbid (Clear); Bacteria Urine 4+ /hpf; Bilirubin Urine Negative (Negative); Blood Urine 2+ (Negative); Color Urine Yellow (Yellow); Glucose Urine UA Negative (Negative); Ketones Urine Trace mg/dL (Negative); Leukocyte Esterase Ur 2+ LEU/UL (Negative); Need Manual Microscopic Reviewed; Nitrate Urine Positive (Negative); Non Pathogenic Casts 0-2; Protein Urine 1+ mg/dL (Negative); Specific Grav Ur > 1.045 (1.001-1.035); Squamous Epithelial Cell Urine None Seen /hpf (Few); WBC Urine >100 /hpf (0-3); pH Urine 6.5 (5.0-9.0)
--- NOTE | 2024-04-08 02:55 | PM.IMHP ---
H&P: HPI History of Present Illness Date/Time: 04/08/24 02:55 Chief Complaint: Chills Narrative: This is a 63-year-old male with past medical history significant for hypertension, type diabetes mellitus, benign prostatic hyperplasia. Patient presents to the emergency room due to chills fevers generalized malaise pain and burning with urination of 1 day duration. In emergency room patient was found to have urinalysis with over 100 WBCs per high-power field. Review of Systems Review of Systems: Chills, fevers, generalized malaise, pain and burning with urination x1 day duration PMFSH Past Medical History Medical History Apnea BMI 28.0-28.9,adult Elevated liver enzymes Essential (primary) hypertension Hepatic steatosis DARLING (obstructive sleep apnea) Screening for prostate cancer Type 2 diabetes mellitus without complications Surgical History Surgical History History of kidney surgery History of shoulder surgery Hx of eye surgery Hx of hernia repair S/P inguinal hernia repair 01/22/24 Robotic assisted repair of recurrent right inguinal hernia, left inguinal hernia on Family History Family History Mother Hypertension Family history of diabetes mellitus in first degree relative Diabetes mellitus Father Family history of liver disease Sibling No problems noted. Other Family history of malignant neoplasm Social History Social History Smoking status: Never smoker Second hand tobacco smoke exposure: Yes Alcohol intake: never Substance use: never Substance use type: does not use Do You Feel Safe in your Home?: Yes Lack of Transportation: No Lack of Food: Never True Current Housing: I Have Housing Concerned About Future Housing: No Difficulty Paying Gas/Electric Bills: No Difficulty Paying for Meds: No Currently Unemployed: No Education: Trade/Vocational Certificate Difficulty w/ Childcare or Family Care: No Living arrangements: with family Occupation/Education: occupation Additional occupation/education comments: [id number] Gender identity (if verbalized by the patient): Male Spiritual care concerns: No Meds Home Medications and Allergies Home Medications Medication Instructions Recorded Confirmed Type metoprolol tartrate 25 mg tablet 25 mg PO BID #180 tabs 01/03/24 04/08/24 Rx omeprazole 40 mg capsule,delayed See Rx Instructions .Route 01/03/24 04/08/24 Rx release .COMPLEX #90 caps sertraline 50 mg tablet 50 mg PO DAILY #90 tabs 01/28/24 04/08/24 Rx ezetimibe 10 mg tablet 10 mg PO DAILY #90 tabs 02/13/24 04/08/24 Rx metformin 500 mg tablet,extended See Rx Instructions .Route 02/26/24 04/08/24 Rx release 24 hr .COMPLEX #360 tabs tamsulosin 0.4 mg capsule See Rx Instructions .Route 02/26/24 04/08/24 Rx .COMPLEX #90 caps lisinopril 20 mg tablet See Rx Instructions .Route 04/07/24 04/08/24 Rx .COMPLEX #90 tabs Allergies Allergy/AdvReac Type Severity Reaction Status Date / Time No Known Allergies Allergy Verified 04/08/24 06:54 Vital Signs Vital Signs - 24 hr 04/08/24 00:04 Temperature 98.5 F Pulse Rate 85 Respiratory Rate 20 Blood Pressure 139/67 Pulse Oximetry 97 Oxygen Delivery Room Air Exam Narrative: Patient is laying in a stretcher Const: General: cooperative, comfortable, no acute distress, well developed, alert, awake, ill appearing acutely and overweight Nutritional Appearance: overweight Orientation/consciousness: patient oriented x3 Other: Dry looking mucosa HENMT: Head: normal to inspection, normocephalic and atraumatic Ears: hearing grossly normal bilaterally Face/Nose/Sinus: normal facial exam Face and sinus: normal facial exam Eyes: Gene
--- NOTE | 2024-04-08 03:06 | ED.GENADULT ---
HPI - General Adult General Chief complaint: Urogenital-Male Stated complaint: kidney infection Time Seen by Provider: 04/08/24 00:18 History of Present Illness HPI narrative: Patient is a 63-year-old male who presents to the emergency department this evening complaining of dysuria and difficulty starting his urinary stream. Patient states that he was recently diagnosed with urinary tract infection and started on Bactrim. He has had 2 days worth of Bactrim with no improvement of his symptoms. Patient states that when he does urinate it chau and now he is having hard time initiating his stream. Denies any similar symptoms in the past. Patient states that this urinary tract infection was precipitated by urological procedure that he had recently. Denies any fevers or chills at home. Denies any nausea or vomiting. No additional symptoms or concerns at this time. Related Data Allergies Allergy/AdvReac Type Severity Reaction Status Date / Time No Known Allergies Allergy Verified 04/08/24 06:54 Review of Systems Review of Systems: All systems are reviewed and are negative unless stated otherwise in the HPI. PMF Past Medical History Medical History Apnea BMI 28.0-28.9,adult Elevated liver enzymes Essential (primary) hypertension Hepatic steatosis DARLING (obstructive sleep apnea) Screening for prostate cancer Type 2 diabetes mellitus without complications Surgical History Surgical History History of kidney surgery History of shoulder surgery Hx of eye surgery Hx of hernia repair S/P inguinal hernia repair 01/22/24 Robotic assisted repair of recurrent right inguinal hernia, left inguinal hernia on Family History Family History Mother Hypertension Family history of diabetes mellitus in first degree relative Diabetes mellitus Father Family history of liver disease Sibling No problems noted. Other Family history of malignant neoplasm Social History Social History Smoking status: Never smoker Second hand tobacco smoke exposure: Yes Alcohol intake: never Substance use: never Substance use type: does not use Do You Feel Safe in your Home?: Yes Lack of Transportation: No Lack of Food: Never True Current Housing: I Have Housing Concerned About Future Housing: No Difficulty Paying Gas/Electric Bills: No Difficulty Paying for Meds: No Currently Unemployed: No Education: Trade/Vocational Certificate Difficulty w/ Childcare or Family Care: No Living arrangements: with family Occupation/Education: occupation Additional occupation/education comments: [id number] Gender identity (if verbalized by the patient): Male Spiritual care concerns: No Exam Narrative: General: Alert, awake, afebrile, in no acute distress. HEENT: PERRL, no rhinorrhea, no post nasal drip, oropharynx clear. Cardiovascular: Regular rate and rhythm, no murmurs, rubs or gallops, no peripheral edema. Respiratory: Clear to auscultation bilaterally, no tachypnea, no wheezing, no rhonchi, no rubs, no respiratory distress. Abdomen: Soft, nontender, nondistended, no rebound, no guarding, no peritoneal signs. Musculoskeletal: No joint swelling or deformity, normal muscle tone. Skin: No rashes or petechia, no signs of infection. Neurological: Alert and oriented to person, place, and time. Follows all commands. No focal deficits, speech is clear and fluent. Course Vital Signs Vital signs: Vital Signs Temperature 98.5 F 04/08/24 00:04 Pulse Rate 85 04/08/24 00:04 Respiratory Rate 20 04/08/24 00:04 Blood Pressure 139/67 04/08/24 00:04 Pulse Oximetry 97 04/08/24 00:04 Oxygen Delivery Room Air 04/08/24 00:04 Temperature 99.6 F
[2024-04-08] MEDS: MEROPENEM 500 MG/NS 100 ML 500 MG/100 ML BAG 200 MG IVPB ×2 (03:20→14:46)
[2024-04-08] MEDS: levoFLOXacin 750 MG/D5W 150 ML 750 MG/150 ML BAG 100 MG IVPB (03:20)
[2024-04-08 03:29] LABS: Lactic Acid Reflex 1.9 mmol/L (0.7-2.0)
--- NOTE | 2024-04-08 06:24 | ADMGEN ---
This patient, Edward Be, was admitted to [facility] Surg Room 314-02. Patient/family oriented to hospital policies and general routines including ID bracelet, bed and alarms, visiting hours, pain management, procedures, bathroom and other care routines, personal items, smoking policy, room service/diet, and visiting hours. Information on how to activate the Rapid Response Team has been discussed. Patient/Family are encouraged to report perceived risks to care and to ask questions if they do not understand what they are told or what they should do.
--- NOTE | 2024-04-08 11:14 | PM.IMPN ---
Progress Note: A&P Assessment and Plan (1) UTI (urinary tract infection): Code(s): N39.0 - Urinary tract infection, site not specified Status: Acute Assessment and Plan: - Abdomen/Pelvis CT: Possible cystitis. Correlate with urinalysis. - Started on Merrem. - Await cultures (2) Essential (primary) hypertension: Code(s): I10 - Essential (primary) hypertension Status: Acute Assessment and Plan: - Currently well controlled. - Monitor for now. (3) Type 2 diabetes mellitus without complications: Qualifiers: Diabetes mellitus termite control servicer insulin use: without jail use Qualified Code(s): E11.9 - Type 2 diabetes mellitus without complications Code(s): E11.9 - Type 2 diabetes mellitus without complications Status: Acute Assessment and Plan: - Currently fairly well controlled. - Monitor for now. (4) Hepatic steatosis: Code(s): K76.0 - Fatty (change of) liver, not elsewhere classified Status: Acute Assessment and Plan: - Continue to monitor LFT's for now. (5) DARLING (obstructive sleep apnea): Code(s): G47.33 - Obstructive sleep apnea (adult) (pediatric) Status: Acute Assessment and Plan: - CPAP at nighttime (6) GERD (gastroesophageal reflux disease): Code(s): K21.9 - Gastro-esophageal reflux disease without esophagitis Status: Acute Assessment and Plan: PPI Time Spent With Patient Time with patient: 25 - 35 minutes Subjective Date/time seen: 04/08/24 10:10 Interval history: Patient presented with Chills, fevers, generalized malaise, pain and burning with urination x1 day duration. Patient reports having a cystoscopy done with right ureteroscopy about a month ago in [place], and that's what he believed triggered his symptoms. Pt currently calm on bedrest, reports feeling better but still gets clammy at times. Review of Systems Review of Systems: All systems reviewed & are unremarkable except as noted in HPI and below Exam Narrative: Patient is laying in a stretcher Const: General: cooperative, comfortable, well developed, alert, awake, ill appearing acutely and overweight Nutritional Appearance: overweight Orientation/consciousness: patient oriented x3 Other: Dry looking mucosa HENMT: Head: normal to inspection, normocephalic and atraumatic Ears: hearing grossly normal bilaterally Face/Nose/Sinus: normal facial exam Face and sinus: normal facial exam Eyes: General: appearance normal, both eyes and all related structures Pupils: Equal, round and reactive pupils present EOM: EOMs intact bilaterally Neck: Neck: full ROM, no lymphadenopathy and no JVD Thyroid: thyroid normal Lymphatic: no lymphadenopathy noted Resp: Effort & Inspection: normal respiratory effort and able to speak in complete sentences Auscultation: clear to auscultation bilaterally Cardio: Jugular venous distension: no JVD Rate: regular rate Rhythm: regular rhythm Heart sounds: S1 normal heart sound present and S2 normal heart sound present GI: GI Palp: Yes Soft to palpation Auscultation: normal bowel sounds Other: non-tender : General: Yes deferred Skin: Rashes: no rashes Wounds: no wounds Neuro: General: patient oriented x3 and CN's II-XI intact bilaterally Cranial nerves: Yes CN's II-XII intact bilaterally and Yes Equal, round and reactive pupils present Cognition (Neuro): normal cognition Speech: normal speech Gait exam (Neuro): Normal gait present Motor exam (neuro): 5/5 motor strength present throughout Extrem: General: normal to inspection, full ROM, no joint enlargement and no pedal edema Objective Data Vital Signs Vital Signs: Vital Signs - 24 hr 04/08/24 00:04 04/08/24 00:14 04/08/24 00:15 Temperature 98.5 F Pulse Rate 85 100 Respiratory Rate 20 23 H Blood Pressure 139/67 Pulse Oximetry 97 97 97 Oxygen Delivery Room Air 04/08/24 00:30 04/08/24 00:32
[2024-04-08] MEDS: ACETAMINOPHEN 325 MG TABLET 650 MG PO ×2 (14:07→20:15)
[2024-04-08] MEDS: SERTRALINE HCL 50 MG TABLET PO (14:07)
[2024-04-08] MEDS: TAMSULOSIN HCL 0.4 MG CAPSULE BY MOUTH (20:15)
[2024-04-09] MEDS: MEROPENEM 500 MG/NS 100 ML 500 MG/100 ML BAG 200 MG IVPB (02:58)
[2024-04-09 05:56] VITALS: BP 110/62; PULSE 106; RESP 13; TEMP 36.2; O2SAT 98
[2024-04-09] MEDS: PANTOPRAZOLE 40 MG TABLET PO (08:51)
[2024-04-09] MEDS: SERTRALINE HCL 50 MG TABLET PO (08:51)
[2024-04-09 08:58] LABS: Basophils Percent Auto 0.4 % (0.2-1.2); Eosinophils Percent Auto 0.3 % (0-4.4); Hematocrit 40.1 % (42.0-52.0); Hemoglobin 13.6 g/dL (14.0-18.0); Immature Granulocyte Absolute 0.04 K/mm3 (0.00-0.031); Immature Granulocyte Percent A 0.5 % (0-0.5); Lymphocytes Absolute Auto 0.68 K/mm3 (0.9-3.2); Lymphocytes Percent Auto 8.7 % (18.3-44.2); Mean Corpuscular HGB Conc 33.9 g/dl (32-36); Mean Corpuscular Hemoglobin 29.8 pg (26-34); Mean Corpuscular Volume 87.9 fl (80-100); Mean Platelet Volume 9.9 fl (7.4-10.4); Monocytes Absolute Auto 0.5 K/mm3 (0.1-0.6); Monocytes Percent Auto 6.9 % (2.6-8.5); Neutrophils Absolute Auto 6.5 K/mm3 (1.3-6.7); Neutrophils Percent Auto 83.2 % (45.5-73.1); Platelet Count Result 152 k/mm3 (150-375); Red Blood Count 4.56 M/mm3 (4.6-6.20); Red Cell Distribution Width 12.6 % (11.5-14.5); White Blood Count 7.8 K/mm3 (4.5-10.0)
[2024-04-09 09:26] LABS: Alanine Aminotransferase 36 U/L (6-50); Albumin Level 4.5 g/dL (3.5-5.1); Alkaline Phosphatase 63 U/L (38-126); Anion Gap 13 mmol/L (4-12); Aspartate Amino Transferase 34 U/L (17-59); Bilirubin,Total 2.1 mg/dL (0.2-1.3); Blood Urea Nitrogen 17 mg/dL (9-20); Carbon Dioxide 22 mmol/L (22-30); Chloride 100 mmol/L (98-107); Estimated CRCL calculation 87 ml/min; Estimated Glomerular Filt Rate > 60; Glucose 161 mg/dL (65-110); Potassium 4.1 mmol/L (3.4-5.0); Sodium 135 mmol/L (137-145)
--- NOTE | 2024-04-09 10:27 | PM.IMPN ---
Progress Note: A&P Assessment and Plan (1) UTI (urinary tract infection): Code(s): N39.0 - Urinary tract infection, site not specified Status: Acute Assessment and Plan: - Abdomen/Pelvis CT: Possible cystitis. Correlate with urinalysis. - UA consistent with UTI. - Started on Merrem. - Still awaiting cultures (2) BPH (benign prostatic hyperplasia): Code(s): N40.0 - Benign prostatic hyperplasia without lower urinary tract symptoms Status: Acute Assessment and Plan: - Betts placed in the ER on admission. - Remove betts for voiding trials. - Re-insert betts if unable to void. - Tamsulosin restarted. (3) Essential (primary) hypertension: Code(s): I10 - Essential (primary) hypertension Status: Acute Assessment and Plan: - Remains well controlled. - Monitor for now. 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 - Continue to monitor. (5) Hepatic steatosis: Code(s): K76.0 - Fatty (change of) liver, not elsewhere classified Status: Acute Assessment and Plan: - LFT's normal. - Further w/u outpatient. (6) DARLING (obstructive sleep apnea): Code(s): G47.33 - Obstructive sleep apnea (adult) (pediatric) Status: Acute Assessment and Plan: - CPAP bedtime. (7) GERD (gastroesophageal reflux disease): Code(s): K21.9 - Gastro-esophageal reflux disease without esophagitis Status: Acute Assessment and Plan: PPI Time Spent With Patient Time with patient: 25 - 35 minutes Subjective Date/time seen: 04/09/24 10:27 Interval history: Patient presented with Chills, fevers, generalized malaise, pain and burning with urination x1 day duration. Patient reports having a cystoscopy done with right ureteroscopy about a month ago in [place], and that's what he believed triggered his symptoms. Pt is being treated for UTI, currently calm on bedrest and denies any distressful symptoms. States he was sweating a lot at night and last evening. Review of Systems Review of Systems: All systems reviewed & are unremarkable except as noted in HPI and below Exam Narrative: Patient comfortable on bedrest Const: General: cooperative, comfortable, no acute distress, well developed, alert, awake and overweight Nutritional Appearance: overweight Orientation/consciousness: patient oriented x3 Other: Dry looking mucosa HENMT: Head: normal to inspection, normocephalic and atraumatic Ears: hearing grossly normal bilaterally Face/Nose/Sinus: normal facial exam Face and sinus: normal facial exam Eyes: General: appearance normal, both eyes and all related structures Pupils: Equal, round and reactive pupils present EOM: EOMs intact bilaterally Neck: Neck: full ROM, no lymphadenopathy and no JVD Thyroid: thyroid normal Lymphatic: no lymphadenopathy noted Resp: Effort & Inspection: normal respiratory effort and able to speak in complete sentences Auscultation: clear to auscultation bilaterally Cardio: Jugular venous distension: no JVD Rate: regular rate Rhythm: regular rhythm Heart sounds: S1 normal heart sound present and S2 normal heart sound present GI: Auscultation: normal bowel sounds Other: non-tender : General: Yes deferred Skin: Rashes: no rashes Wounds: no wounds Neuro: General: patient oriented x3 Cranial nerves: Yes CN's II-XII intact bilaterally and Yes Equal, round and reactive pupils present Cognition (Neuro): normal cognition Speech: normal speech Gait exam (Neuro): Normal gait present Motor exam (neuro): 5/5 motor strength present throughout Extrem: General: normal to inspection,
--- NOTE | 2024-04-09 11:05 | PC.NURSE ---
LATE ENTRY This note is being entered to document information to the patient's record. The following information was omitted on [04/08/24], by [Malika Person]. Caldwell catheter inserted without difficulty at 0315am on 04/08/24.
[2024-04-09 14:00] VITALS: BP 147/76; PULSE 105; RESP 14; TEMP 36.9; O2SAT 97
[2024-04-09] MEDS: cefTRIAXone 2 GM/NS 100 ML 2 GM/100 ML BAG IVPB (15:09)
[2024-04-09] MEDS: SODIUM CHLORIDE 0.9% IV 500 ML IV CONT (17:17)
[2024-04-09] MEDS: TAMSULOSIN HCL 0.4 MG CAPSULE BY MOUTH (20:42)
[2024-04-09 21:10] VITALS: BP 110/79; PULSE 103; RESP 14; TEMP 36.7; O2SAT 97
[2024-04-10 05:36] VITALS: BP 116/70; PULSE 99; RESP 13; TEMP 36.1; O2SAT 98
[2024-04-10 06:54] LABS: Basophils Percent Auto 0.4 % (0.2-1.2); Eosinophils Absolute Auto 0.1 K/mm3 (0-0.3); Hematocrit 38.5 % (42.0-52.0); Hemoglobin 13.2 g/dL (14.0-18.0); Immature Granulocyte Absolute 0.03 K/mm3 (0.00-0.031); Immature Granulocyte Percent A 0.7 % (0-0.5); Lymphocytes Absolute Auto 0.93 K/mm3 (0.9-3.2); Lymphocytes Percent Auto 20.2 % (18.3-44.2); Mean Corpuscular HGB Conc 34.3 g/dl (32-36); Mean Corpuscular Hemoglobin 29.9 pg (26-34); Mean Corpuscular Volume 87.1 fl (80-100); Mean Platelet Volume 9.8 fl (7.4-10.4); Monocytes Absolute Auto 0.5 K/mm3 (0.1-0.6); Monocytes Percent Auto 11.5 % (2.6-8.5); Neutrophils Percent Auto 65.2 % (45.5-73.1); Platelet Count Result 165 k/mm3 (150-375); Red Blood Count 4.42 M/mm3 (4.6-6.20); Red Cell Distribution Width 12.5 % (11.5-14.5); White Blood Count 4.6 K/mm3 (4.5-10.0)
[2024-04-10 07:15] LABS: Alanine Aminotransferase 39 U/L (6-50); Albumin Level 4.1 g/dL (3.5-5.1); Alkaline Phosphatase 60 U/L (38-126); Anion Gap 10 mmol/L (4-12); Aspartate Amino Transferase 38 U/L (17-59); Bilirubin,Total 0.9 mg/dL (0.2-1.3); Blood Urea Nitrogen 20 mg/dL (9-20); Calcium 8.7 mg/dL (8.4-10.2); Carbon Dioxide 22 mmol/L (22-30); Chloride 103 mmol/L (98-107); Estimated CRCL calculation 98 ml/min; Estimated Glomerular Filt Rate > 60; Glucose 176 mg/dL (65-110); Potassium 3.8 mmol/L (3.4-5.0); Sodium 135 mmol/L (137-145)
[2024-04-10] MEDS: SERTRALINE HCL 50 MG TABLET PO (07:58)
[2024-04-10] MEDS: PANTOPRAZOLE 40 MG TABLET PO (07:58)
[2024-04-10 14:00] VITALS: BP 136/74; PULSE 90; RESP 18; TEMP 36.8; O2SAT 97
--- NOTE | 2024-04-10 14:09 | PM.IMPN ---
Progress Note: A&P Assessment and Plan (1) UTI (urinary tract infection): Code(s): N39.0 - Urinary tract infection, site not specified Status: Acute Assessment and Plan: - Abdomen/Pelvis CT: Possible cystitis. Correlate with urinalysis. - UA consistent with UTI. - Currently on Ceftriaxone. - Still awaiting cultures. (2) BPH (benign prostatic hyperplasia): Code(s): N40.0 - Benign prostatic hyperplasia without lower urinary tract symptoms Status: Acute Assessment and Plan: - Betts placed in the ER on admission. - Consider removing betts for voiding trials. - Re-insert betts if unable to void. - Tamsulosin restarted. (3) Essential (primary) hypertension: Code(s): I10 - Essential (primary) hypertension Status: Acute Assessment and Plan: - Remains well controlled. - Monitor for now. 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 - Continue to monitor. (5) Hepatic steatosis: Code(s): K76.0 - Fatty (change of) liver, not elsewhere classified Status: Acute Assessment and Plan: - LFT's normal. - Further w/u outpatient. (6) DARLING (obstructive sleep apnea): Code(s): G47.33 - Obstructive sleep apnea (adult) (pediatric) Status: Acute Assessment and Plan: - CPAP bedtime. (7) GERD (gastroesophageal reflux disease): Code(s): K21.9 - Gastro-esophageal reflux disease without esophagitis Status: Acute Assessment and Plan: PPI Subjective Date/time seen: 04/10/24 12:09 Interval history: Patient presented with Chills, fevers, generalized malaise, pain and burning with urination x1 day duration. Patient reports having a cystoscopy done with right ureteroscopy about a month ago in [place], and that's what he believed triggered his symptoms. Pt is being treated for UTI and awaiting urine culture results. Review of Systems Review of Systems: Patient currently calm on bedrest and states still has episodes of sweating at night. Denies other distressful symptoms All systems reviewed & are unremarkable except as noted in HPI and below Exam Narrative: Patient comfortable on bedrest Const: General: cooperative, comfortable, no acute distress, well developed, alert, awake and overweight Nutritional Appearance: overweight Orientation/consciousness: patient oriented x3 Other: Dry looking mucosa HENMT: Head: normal to inspection, normocephalic and atraumatic Ears: hearing grossly normal bilaterally Face/Nose/Sinus: normal facial exam Face and sinus: normal facial exam Eyes: General: appearance normal, both eyes and all related structures Pupils: Equal, round and reactive pupils present EOM: EOMs intact bilaterally Neck: Neck: full ROM, no lymphadenopathy and no JVD Thyroid: thyroid normal Lymphatic: no lymphadenopathy noted Resp: Effort & Inspection: normal respiratory effort and able to speak in complete sentences Auscultation: clear to auscultation bilaterally Cardio: Jugular venous distension: no JVD Rate: regular rate Rhythm: regular rhythm Heart sounds: S1 normal heart sound present and S2 normal heart sound present GI: Auscultation: normal bowel sounds Other: non-tender : General: Yes deferred Skin: Rashes: no rashes Wounds: no wounds Neuro: General: patient oriented x3 and CN's II-XI intact bilaterally Cranial nerves: Yes CN's II-XII intact bilaterally and Yes Equal, round and reactive pupils present Cognition (Neuro): normal cognition Speech: normal speech Gait exam (Neuro): Normal gait present Motor exam (neuro): 5/5 motor strength present throughout Extre
[2024-04-10] MEDS: cefTRIAXone 2 GM/NS 100 ML 2 GM/100 ML BAG IVPB (15:11)
[2024-04-10 20:38] VITALS: BP 139/71; PULSE 84; RESP 16; TEMP 36.2; O2SAT 98
[2024-04-10] MEDS: TAMSULOSIN HCL 0.4 MG CAPSULE BY MOUTH (20:55)
[2024-04-11 05:48] VITALS: BP 128/69; PULSE 86; RESP 22; TEMP 36.2; O2SAT 98
[2024-04-11] MEDS: PANTOPRAZOLE 40 MG TABLET PO (08:24)
[2024-04-11] MEDS: SERTRALINE HCL 50 MG TABLET PO (08:24)
[2024-04-11 14:00] VITALS: BP 137/72; PULSE 90; RESP 20; TEMP 36.3; O2SAT 98
[2024-04-11] MEDS: cefTRIAXone 2 GM/NS 100 ML 2 GM/100 ML BAG IVPB (14:05)
--- NOTE | 2024-04-11 14:52 | PM.IMPN ---
Progress Note: A&P Assessment and Plan (1) UTI (urinary tract infection): Code(s): N39.0 - Urinary tract infection, site not specified Status: Acute Assessment and Plan: - Abdomen/Pelvis CT: Possible cystitis. Correlate with urinalysis. - UA consistent with UTI. - Currently on Ceftriaxone. - Awaiting cultures. (2) BPH (benign prostatic hyperplasia): Code(s): N40.0 - Benign prostatic hyperplasia without lower urinary tract symptoms Status: Acute Assessment and Plan: - Caldwell discontinued. - Voiding well with no retention. - Continue Tamsulosin. (3) Essential (primary) hypertension: Code(s): I10 - Essential (primary) hypertension Status: Acute Assessment and Plan: - Remains well controlled. - Continue to monitor. (4) Type 2 diabetes mellitus without complications: Qualifiers: Diabetes mellitus mcfp insulin use: without mcfp use Qualified Code(s): E11.9 - Type 2 diabetes mellitus without complications Code(s): E11.9 - Type 2 diabetes mellitus without complications Status: Acute Assessment and Plan: - Currently fairly well controlled. - Continue to monitor. (5) Hepatic steatosis: Code(s): K76.0 - Fatty (change of) liver, not elsewhere classified Status: Acute Assessment and Plan: - LFT's normal. - Further w/u outpatient. (6) DARLING (obstructive sleep apnea): Code(s): G47.33 - Obstructive sleep apnea (adult) (pediatric) Status: Acute Assessment and Plan: - CPAP bedtime. (7) GERD (gastroesophageal reflux disease): Code(s): K21.9 - Gastro-esophageal reflux disease without esophagitis Status: Acute Assessment and Plan: PPI Subjective Date/time seen: 04/11/24 12:52 Interval history: Patient presented with Chills, fevers, generalized malaise, pain and burning with urination x1 day duration. Patient reports having a cystoscopy done with right ureteroscopy about a month ago in [place], and that's what he believed triggered his symptoms. Pt is being treated for UTI and awaiting urine culture results. Review of Systems Review of Systems: Patient currently calm on bedrest, denies distressful symptoms but frustrated about urine culture results not out yet. All systems reviewed & are unremarkable except as noted in HPI and below Exam Narrative: Patient comfortable on bedrest Const: General: cooperative, comfortable, no acute distress, well developed, alert, awake and overweight Nutritional Appearance: overweight Orientation/consciousness: patient oriented x3 Other: HENMT: Head: normal to inspection, normocephalic and atraumatic Ears: hearing grossly normal bilaterally Face/Nose/Sinus: normal facial exam Face and sinus: normal facial exam Eyes: General: appearance normal, both eyes and all related structures Pupils: Equal, round and reactive pupils present EOM: EOMs intact bilaterally Neck: Neck: full ROM, no lymphadenopathy and no JVD Thyroid: thyroid normal Lymphatic: no lymphadenopathy noted Resp: Effort & Inspection: normal respiratory effort and able to speak in complete sentences Auscultation: clear to auscultation bilaterally Cardio: Jugular venous distension: no JVD Rate: regular rate Rhythm: regular rhythm Heart sounds: S1 normal heart sound present and S2 normal heart sound present GI: Auscultation: normal bowel sounds Other: non-tender : General: Yes deferred Skin: Rashes: no rashes Wounds: no wounds Neuro: General: patient oriented x3 and CN's II-XI intact bilaterally Cranial nerves: Yes CN's II-XII intact bilaterally and Yes Equal, round and reactive pupils present Cognition (Neuro): normal cognition Speech: normal speech Gait exam (Neuro): Normal gait present Motor exam (neuro): 5/5 motor strength present throughout Extrem: General: normal to inspection, full ROM, no joint enlargement and no pedal edema
[2024-04-11 20:58] VITALS: BP 155/78; PULSE 87; RESP 20; TEMP 35.9; O2SAT 97
[2024-04-11] MEDS: TAMSULOSIN HCL 0.4 MG CAPSULE BY MOUTH (21:22)
[2024-04-12 05:09] VITALS: BP 141/85; PULSE 85; RESP 18; TEMP 36.4; O2SAT 98
[2024-04-12] MEDS: SERTRALINE HCL 50 MG TABLET PO (07:52)
[2024-04-12] MEDS: PANTOPRAZOLE 40 MG TABLET PO (07:53)
[2024-04-12] MEDS: cefTRIAXone 2 GM/NS 100 ML 2 GM/100 ML BAG IVPB (13:58)
[2024-04-12 14:00] VITALS: BP 130/68; PULSE 89; RESP 18; TEMP 36.6; O2SAT 97
--- NOTE | 2024-04-12 14:57 | PM.DS ---
DS: Admitting Diagnosis Discharge Date 04/12/2024 Admitting Diagnosis UTI DS: Discharge Diagnosis Discharge Diagnosis (1) UTI (urinary tract infection): Code(s): N39.0 - Urinary tract infection, site not specified Status: Acute Assessment and Plan: - Abdomen/Pelvis CT: Possible cystitis. Correlate with urinalysis. - UA consistent with UTI. - Blood cultures negative. - Urine culture still pending and lab unsure if they have sample. - Treated with Meropenem, Levaquin IV and Ceftriaxone. - IV antibiotics treatment completed inpatient. (2) BPH (benign prostatic hyperplasia): Code(s): N40.0 - Benign prostatic hyperplasia without lower urinary tract symptoms Status: Acute Assessment and Plan: - Caldwell placed on admission but patient did well after discontinuation. - Tamsulosin continued inpatient. (3) Essential (primary) hypertension: Code(s): I10 - Essential (primary) hypertension Status: Acute Assessment and Plan: - Remained well controlled inpatient. 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 (5) Hepatic steatosis: Code(s): K76.0 - Fatty (change of) liver, not elsewhere classified Status: Acute Assessment and Plan: - LFT's remained normal. (6) DARLING (obstructive sleep apnea): Code(s): G47.33 - Obstructive sleep apnea (adult) (pediatric) Status: Acute Assessment and Plan: - CPAP used bedtime. (7) GERD (gastroesophageal reflux disease): Code(s): K21.9 - Gastro-esophageal reflux disease without esophagitis Status: Acute Assessment and Plan: PPI used inpatient. Plan Patient to be discharged home with self-care. DS: Summary Hospital Course Reason for hospitalization: UTI Hospital Course: Patient presented to the ER with reports of fevers, chills and dysuria. Patient reportedly had a cystoscopy done a couple of weeks prior for ureteral stone removal. Patient's urinalysis was consistent with a UTI and she was admitted for treatment. Patient's blood-cultures were negative and his urine culture never resulted, with lab unsure if they have them. He completed treatment of his UTI with IV antibiotics. He had low-grade temps that resolved before his admission, with his WBC's also normalizing prior to discharge. All his other chronic conditions remained stable inpatient and he was medically stable prior to discharge with no aute distress. Status at Discharge Functional status at discharge: independent ambulation Overall status at discharge: patient is back to baseline Time Spent with Patient Time attestation: Total time spent providing and/or coordinating discharge services: Time spent: Greater than 30 minutes Exam Narrative: Patient comfortable on bedrest Const: General: cooperative, comfortable, no acute distress, well developed, alert, awake and overweight Nutritional Appearance: overweight Orientation/consciousness: patient oriented x3 Other: HENMT: Head: normal to inspection, normocephalic and atraumatic Ears: hearing grossly normal bilaterally Face/Nose/Sinus: normal facial exam Face and sinus: normal facial exam Eyes: General: appearance normal, both eyes and all related structures Pupils: Equal, round and reactive pupils present EOM: EOMs intact bilaterally Neck: Neck: full ROM, no lymphadenopathy and no JVD Thyroid: thyroid normal Lymphatic: no lymphadenopathy noted Resp: Effort & Inspection: normal respiratory effort and able to speak in complete sentences Auscultation: clear to auscultation bilaterally Cardio: Jugular venous distension: no JVD Ra
== END 2024-04-12 15:30 | disposition home or self-care (01) | DRG 690 ==
LOC: ANHED 02:37 → ANH3MEDSUR 04:14
PROVIDERS: Admitting Provider Internal Medicine; Emergency Provider Emergency Medicine; PCP Family Medicine; Visit Provider Nurse Practitioner Adult Health
DX: N39.0 Urinary tract infection, site not specified (principal); N40.0 Benign prostatic hyperplasia without lower urinary tract symptoms; I10 Essential (primary) hypertension; E11.9 Type 2 diabetes mellitus without complications; K76.0 Fatty (change of) liver, not elsewhere classified; G47.33 Obstructive sleep apnea (adult) (pediatric); K21.9 Gastro-esophageal reflux disease without esophagitis
CPT/HCPCS: 36415; 74177; 80053; 81001; 83605; 85025; 87040; 87086; 96360; 99285; A9270; J0696; J1956; J2185; J7030; J7040; Q9967